=== PATIENT | female | born 1965 | race African-American/Black ===

== ENCOUNTER 2021-02-25 10:15 | Emergency (ER) | payer OTHER | END 2021-02-25 10:37 | disposition home or self-care (01) | LOC: JVIRT 10:15 | DX: U07.1 COVID-19 (principal) | CPT/HCPCS: C9803; G2251-GT; Q3014-GT; U0003; U0005 ==

== ENCOUNTER 2021-02-26 09:50 | Emergency (ER) | payer OTHER | END 2021-02-26 10:12 | disposition home or self-care (01) | LOC: JVIRT 09:50 | DX: Z11.52 Encounter for screening for COVID-19 (principal) | CPT/HCPCS: C9803; G2251-GT; Q3014-GT; U0003; U0005 ==

== ENCOUNTER 2021-02-27 10:23 | Emergency (ER) | payer OTHER | END 2021-02-27 10:32 | disposition home or self-care (01) | LOC: JVIRT 10:23 | DX: Z20.822 Contact with and (suspected) exposure to COVID-19 (principal) | CPT/HCPCS: C9803; G2251-GT; Q3014-GT; U0003; U0005 ==

== ENCOUNTER 2021-05-05 14:02 | Emergency (ER) | payer OTHER ==
[2021-05-05 14:26] VITALS: TEMP 98; BMI 22.6
[2021-05-05 16:13] LABS: BASO % 1.1 % (0-2.0); EOS % 0.4 % (0-4.5); HEMATOCRIT 29.8 % (32.4-45.2); HEMOGLOBIN 9.6 GM/dL (10.7-15.3); LYMPH % 26.4 % (8-40); MCH 26.7 pg (25.7-33.7); MCHC 32.2 g/dl (32.0-36.0); MEAN CELL VOLUME 82.8 fl (80-96); MEAN PLT VOLUME 6.8 fl (7.5-11.1); MONO % 6.2 % (3.8-10.2); NEUT % 65.9 % (42.8-82.8); PLATELET COUNT 586 10^3/uL (134-434); RDW 16.4 % (11.6-15.6); WHITE BLOOD COUNT 8.4 K/mm3 (4.0-10.0)
[2021-05-05 16:29] LABS: CHLORIDE 101 mmol/L (98-107); SODIUM 136 mmol/L (136-145)
[2021-05-05 16:31] LABS: CALCIUM 9.8 mg/dL (8.5-10.1)
[2021-05-05 16:32] LABS: ALBUMIN 3.5 g/dl (3.4-5.0); ANION GAP 8 MMOL/L (8-16); BLOOD UREA NITROGEN 21.2 mg/dL (7-18); CO2 28 mmol/L (21-32); GLUCOSE,RANDOM 78 mg/dL (74-106)
[2021-05-05 16:35] LABS: SGOT/AST 20 U/L (15-37); SGPT/ALT 16 U/L (13-61)
[2021-05-05 16:36] LABS: BILIRUBIN,TOTAL 0.2 mg/dL (0.2-1); TOT PROT 8.1 g/dl (6.4-8.2)
[2021-05-05 16:38] LABS: ALK PHOS 74 U/L (45-117)
[2021-05-05 18:05] LABS: PH,URINE 5.5 (5.0-8.0); URINE APPEARANCE CLEAR; URINE BILIRUBIN NEGATIVE (NEGATIVE); URINE COLOR YELLOW; URINE GLUCOSE (UA) NEGATIVE (NEGATIVE); URINE KETONE NEGATIVE (NEGATIVE); URINE LEUK ESTERASE NEGATIVE (NEGATIVE); URINE NITRITE NEGATIVE (NEGATIVE); URINE PROTEIN NEGATIVE (NEGATIVE); URINE UROBILINOGEN 0.2 mg/dL (0.2-1.0)
[2021-05-05 19:41] VITALS: BP 111/68; PULSE 78
== END 2021-05-05 19:48 | disposition home or self-care (01) ==
LOC: JER 14:02
DX: R27.8 Other lack of coordination (principal); C50.912 Malignant neoplasm of unspecified site of left female breast
CPT/HCPCS: 36415; 70470-TC; 80053; 81003; 84484; 85025; 87086; 93005; 93010; 99285-25; C9803; Q9967; U0003; U0005

== ENCOUNTER 2021-05-13 12:39 | Inpatient (IN) | payer OTHER ==
[~2021-05-13 12:39] MED LIST: PNEUMOC 13-VAL CONJ-DIP CRM/PF 0.5 ML DISP.SYRIN IM ONE
[2021-05-13] MEDS ORDERED: ACETAMINOPHEN 1000 MG/100 ML VIAL (NON FORMULARY) IVPB ONE (14:46)
[2021-05-13] MEDS ORDERED: ONDANSETRON 4 MG/2 ML VIAL IVPUSH ONE (14:46)
[2021-05-13] MEDS ORDERED: SODIUM CHLORIDE 0.9% 500 ML INFUS.BAG IV ONE (14:47)
[2021-05-13] MEDS ORDERED: ONDANSETRON 4 MG/2 ML VIAL ONE (15:41)
[2021-05-13 16:41] LABS: BASO % 0.5 % (0-2.0); EOS % 0.2 % (0-4.5); HEMATOCRIT 32.9 % (32.4-45.2); HEMOGLOBIN 10.6 GM/dL (10.7-15.3); LYMPH % 21.9 % (8-40); MCH 26.9 pg (25.7-33.7); MCHC 32.3 g/dl (32.0-36.0); MEAN CELL VOLUME 83.4 fl (80-96); MEAN PLT VOLUME 7.3 fl (7.5-11.1); MONO % 10.5 % (3.8-10.2); NEUT % 66.9 % (42.8-82.8); PLATELET COUNT 547 10^3/uL (134-434); RBC 3.95 M/mm3 (3.60-5.2); RDW 17.1 % (11.6-15.6); WHITE BLOOD COUNT 7.3 K/mm3 (4.0-10.0)
[2021-05-13] MEDS ORDERED: ACETAMINOPHEN INJECTION 100 ML IVPB ONE (16:51)
[2021-05-13 17:03] LABS: ALBUMIN 3.4 g/dl (3.4-5.0); CALCIUM 10.5 mg/dL (8.5-10.1)
[2021-05-13 17:04] LABS: BLOOD UREA NITROGEN 18.3 mg/dL (7-18)
[2021-05-13 17:07] LABS: CREATININE 0.9 mg/dL (0.55-1.3)
[2021-05-13 17:08] LABS: BILIRUBIN,TOTAL 0.2 mg/dL (0.2-1); TOT PROT 8.1 g/dl (6.4-8.2)
[2021-05-13] MEDS ORDERED: DEXAMETHASONE SOD PHOSPHATE 10 MG/1 ML VIAL IVPUSH ONE (17:10)
[2021-05-13] MEDS ORDERED: DEXAMETHASONE SOD PHOSPHATE 10 MG/1 ML VIAL ONE (17:24)
[2021-05-13] MEDS ORDERED: PATIENT'S OWN MEDICATION (NON-FORMULARY) (Simvastatin 20 MG Tablet) PO SCH (22:00)
[2021-05-13] MEDS ORDERED: ATORVASTATIN CA 10 MG TABLET (FP) PO SCH (22:00)
[2021-05-13] MEDS: INSULIN SLIDING SCALE (NOVOLOG) 1 VIAL SQ SCH ×2 (23:25→23:29)
[2021-05-14 00:02] VITALS: BMI 21.4
[2021-05-14] MEDS: INSULIN SLIDING SCALE (NOVOLOG) 1 VIAL SQ SCH ×3 (06:30→16:47)
[2021-05-14 07:52] LABS: BASO % 1.3 % (0-2.0); HEMOGLOBIN 10.6 GM/dL (10.7-15.3); LYMPH % 23.5 % (8-40); MCH 27.1 pg (25.7-33.7); MCHC 32.2 g/dl (32.0-36.0); MEAN CELL VOLUME 84.1 fl (80-96); MEAN PLT VOLUME 7.2 fl (7.5-11.1); MONO % 7.6 % (3.8-10.2); NEUT % 67.6 % (42.8-82.8); PLATELET COUNT 553 10^3/uL (134-434); RBC 3.92 M/mm3 (3.60-5.2); RDW 17.3 % (11.6-15.6); WHITE BLOOD COUNT 5.8 K/mm3 (4.0-10.0)
[2021-05-14 08:03] LABS: CHLORIDE 97 mmol/L (98-107); SODIUM 133 mmol/L (136-145)
[2021-05-14 08:10] LABS: CHOLESTEROL 200 mg/dL (50-200)
[2021-05-14 08:11] LABS: TRIGLYCERIDES 84 mg/dL (0-150)
[2021-05-14 08:12] LABS: LDL CHOLESTEROL (ONLY SJRH) 121 mg/dL (5-100)
[2021-05-14 08:14] LABS: ALK PHOS 83 U/L (45-117); BLOOD UREA NITROGEN 26.8 mg/dL (7-18); CALCIUM 10.1 mg/dL (8.5-10.1); HDL CHOLESTEROL 56 mg/dL (40-60)
[2021-05-14 08:15] LABS: ALBUMIN 3.3 g/dl (3.4-5.0); ANION GAP 9 MMOL/L (8-16); CO2 28 mmol/L (21-32); GLUCOSE,RANDOM 291 mg/dL (74-106); MAGNESIUM 2.3 mg/dL (1.8-2.4); SGPT/ALT 19 U/L (13-61)
[2021-05-14 08:16] LABS: BILIRUBIN,TOTAL 0.4 mg/dL (0.2-1); CREATININE 1.2 mg/dL (0.55-1.3); SGOT/AST 38 U/L (15-37)
[2021-05-14 08:17] LABS: TOT PROT 8.3 g/dl (6.4-8.2)
[2021-05-14 08:18] LABS: PHOSPHOROUS 5.2 mg/dL (2.5-4.9)
[2021-05-14] MEDS ORDERED: LISINOPRIL 10 MG TABLET PO SCH (10:00)
[2021-05-14] MEDS ORDERED: ENOXAPARIN NA (PORCINE) 40 MG/0.4 ML DISP.SYRIN SQ SCH (10:00)
[2021-05-14] MEDS ORDERED: amLODIPine BESYLATE 5 MG TABLET (FP) PO SCH (10:00)
[2021-05-14] MEDS ORDERED: DEXAMETHASONE 4 MG TABLET (FP) PO SCH (17:45)
[2021-05-14 18:39] VITALS: BP 101/70; PULSE 79; TEMP 98.9
== END 2021-05-14 19:40 | disposition short-term general hospital (02) | DRG 41 ==
LOC: JER 12:39 → JERBED 17:05 → J7W 21:45
PROVIDERS: ATTEND Nurse Practitioner Family
DX: C79.31 Secondary malignant neoplasm of brain (principal); E78.5 Hyperlipidemia, unspecified; C50.919 Malignant neoplasm of unspecified site of unspecified female breast; I10 Essential (primary) hypertension
CPT/HCPCS: 36415; 70450-TC; 70553-TC; 80053; 80061; 82607; 82746; 82962; 83721; 83735; 84100; 84439; 84443; 85025; 86780; 93005; 93010; 93880-TC; 99285-25; A9579; C9803; J0131; J1100; U0003; U0005